=== PATIENT | male | born 1945 | race Caucasian/White ===

== ENCOUNTER 2020-02-19 12:12 | Emergency (ER) | payer MEDICARE ==
[~2020-02-19] VITALS: Ht 188 cm; Wt 127.0 kg
--- OUTSIDE RECORDS SUMMARY | 2020-02-19 12:14 | XMS REPORT | Summary of Care ---
Author Author [facility] Address Unknown Phone Unavailable Encounter [facility](FIN) [id number] Date(s): 05/14/16 - 06/12/16 [facility] Discharge Disposition: Home or Self Care Attending Physician: Teddy Strickland MD Vital Signs No data available for this section Problem List No data available for this section Allergies, Adverse Reactions, Alerts No data available for this section Medications No data available for this section Results No data available for this section Immunizations No data available for this section Procedures No data available for this section Social History No data available for this section Assessment and Plan No data available for this section
--- OUTSIDE RECORDS SUMMARY | 2020-02-19 12:14 | XMS REPORT | Continuity of Care Document ---
Author Author TEDDY [facility] [address] Address Unknown Phone Unavailable Care Team Providers Care Traveling Nurse Name Role Phone [email or web address] Unavailable Un available Problems Problem Status Onset Date Classification Date Reported Comments Source CERVICAL SPINE DDD Active [facility] Medications No Data Provided for This Section Allergies, Adverse Reactions, Alerts No Known Medication Allergies Immunizations No Data Provided for This Section Results No Data Provided for This Section Pathology Reports No Data Provided for This Section Diagnostic Reports No Data Provided for This Section Consultation Notes No Data Provided for This Section Discharge Summaries No Data Provided for This Section History and Physicals No Data Provided for This Section Vital Signs No Data Provided for This Section Encounters Location Location Details Encounter Type Encounter Number Reason For Visit Attending Provider ADM Date DC Date Status Source [facility] [id number] Teddy Strickland 04/13/2016 05/13/2016 [facility] [id number] Teddy Strickland 05/14/2016 06/13/2016 [facility] Procedures No Data Provided for This Section Assessment and Plan No Data Provided for This Section Plan of Care No Data Provided for This Section Social History Social History Date Source No data available for this section 06/13/2016 [facility] Family History No Data Provided for This Section Advance Directives No Data Provided for This Section Functional Status No Data Provided for This Section
[2020-02-19] MEDS ORDERED: AUGMENTIN 875-1 EACH PO (13:51)
[2020-02-19] MEDS ORDERED: KETOROLAC TROMETHAMINE 60 MG/2 ML VIAL ONE (14:25)
[2020-02-19] MEDS ORDERED: HYDROCODONE/APAP 10MG-325MG TAB PO SCH (14:25)
[2020-02-19] MEDS ORDERED: KETOROLAC TROMETHAMINE 60 MG/2 ML VIAL IM SCH (14:25)
--- NOTE | 2020-02-19 15:36 | Diagnostic Imaging Report ---
TECHNIQUE: Magnetic resonance imaging of the LEFT HIP was performed WITHOUT injected contrast. Dose modulation, iterative reconstruction, and/or weight based adjustment of the mA/kV was utilized to reduce the radiation dose to as low as reasonably achievable. HISTORY: Left hip pain COMPARISON: None available. FINDINGS: No fracture. No lytic or blastic lesion. 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 Muscle bulk is intact. No atrophy. No visualized mass effect on the sciatic nerve. No fluid collections or soft tissue masses. Colonic diverticulosis without inflammatory change. Scattered vascular calcifications. IMPRESSION: No displaced fracture. 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 Signed by: Dr. James Garza M.D. on 02/19/2020 3:32 PM
--- NOTE | 2020-02-19 15:52 | Diagnostic Imaging Report ---
History: Low back and left hip pain Comparison studies: None Technique: Axial images were obtained from T11 inferior endplate through the sacrum. Coronal and sagittal images reconstructed from the axial data. Intravenous contrast: None Dose modulation, iterative reconstruction, and/or weight based adjustment of the mA/kV was utilized to reduce the radiation dose to as low as reasonably achievable. Findings: Number of non-rib bearing vertebral bodies: 5 Alignment: Grade 1 degenerative anterolisthesis of L4 over L5 (1 cm). No scoliosis. Soft tissues: No paraspinal abnormalities. Atherosclerotic calcifications of the abdominal aorta] Paraspinal muscles: Mild fatty infiltration secondary to atrophy Vertebrae: No fractures, infection or neoplasm. Degenerative changes: L1-L2: Disc degeneration with decreased intervertebral space. Diffuse disc bulge results in mild canal stenosis and mild bilateral foraminal narrowing L2-L3: Disc degeneration with decreased intervertebral space. Diffuse disc bulge and mild facet hypertrophy results in mild canal stenosis and mild bilateral foraminal narrowing L3-L4: Disc degeneration with decreased intervertebral space. Diffuse disc bulge and mild facet hypertrophy results in mild canal stenosis, mild right and moderate left foraminal narrowing L4-L5: Disc degeneration with decreased intervertebral space and vacuum disc phenomenon. Uncoverage of the superior disc material, severe facet hypertrophy and grade 1 anterolisthesis results in severe canal stenosis, severe right and moderate left foraminal narrowing L5-S1: Disc degeneration with decreased intervertebral space and vacuum disc phenomenon. Diffuse disc bulge, severe right and moderate left facet hypertrophy results in mild canal stenosis, mild right and moderate left foraminal narrowing Sacroiliac joints: Mild degenerative changes with sclerotic changes and anteriorly projecting osteophytes IMPRESSION: 1. Severe degenerative canal stenosis, severe right and moderate left degenerative foraminal narrowing at L4-L5. Grade 1 degenerative anterolistheses at this level contributes to canal and foraminal stenosis. 2. Moderate degenerative left foraminal narrowing at L3-L4 and L5-S1. 3. Moderate to severe facet hypertrophy at the lower lumbar spine. Diffuse disc degeneration most significant at L4-L5 and L5-S1. Signed by: DR Ish Darnell M.D. on 02/19/2020 3:48 PM
[2020-02-19] MEDS ORDERED: ULTRAM50 MG PO (16:37)
--- NOTE | 2020-02-19 16:46 | Emergency Department Note ---
History of Present Illnes History of Present Illness Chief Complaint: General Medicine Complaints History of Present Illness This is a 74 year old male . Chief Complaint Comment PATIENT IN FROM HOME WITH COMPLAINTS OF SCIATIC NERVE PAIN X 3 WEEKS; STATES WAS SEEN BY PCP AND PUT ON GABAPENTIN, BUT IS STILL HAVING PAIN. RATES PAIN 5/10. PATIENT AMBULATORY WITHOUT ASSISTANCE, APPEARS IN NO DISTRESS, PATIENT HAS AN APPOINTMENT WITH DR BROWN ON 02/29/2020 BUT STATES HE CANNOT MAKE IT THAT LONG. Historian: Patient Arrival Mode: Car Past Medical/Family History Physician Review I have reviewed the patient's past medical and family history. Any updates have been documented here. Past Medical History Recent Fever: No Clinical Suspicion of Infectio: No New/Unexplained Change in Ment: No Past Medical History: Hypertension, Diabetes, CAD, Cancer, GERD, Hyperlipedemia Other Medical History: PROSTATE CANCER Past Surgical History: CABG Other Surgery: PROSTATE PILONIDAL CYST BILATERAL SHOULDER SURGERY Social History Smoking Cessation: Never Smoker Counseling Performed: No Alcohol Use: None Any Illegal Drug Use: No TB Exposure/Symptoms: No Physically hurt or threatened: No Family History Family history of heart diseas: No Other Last Tetanus: UNKNOWN Any Pre-Existing Lines (PICC,: No Is patient up to date on immun: Yes Last Flu: UTD Last Pneumovax: NA Review of Systems Review of Systems Review of other systems All other systems reviewed and negative. Physical Exam Related Data Allergies: Coded Allergies: No Known Allergies (Unverified , 02/19/20) Triage Vital Signs Vital Signs Date Time Temp Pulse Resp B/P (MAP) Pulse Ox O2 Delivery O2 Flow Rate FiO2 02/19/20 12:25 97.5 74 18 145/79 97 Physical Exam CONSTITUTIONAL HENT EYES NECK PULMONARY CARDIOVASCULAR GASTROINTESTINAL GENITOURINARY SKIN MUSCULOSKELETAL NEUROLOGICAL PSYCHOLOGICAL Critical Care Time Subsequent provider I assumed direction of critical care for this patient from another provider of my specialty. Assessment & Plan Assessment & Plan Final Impression: (1) OSTEOARTHRITIS OF HIP, UNSPECIFIED Assessment & Plan Lumbar CT, Hip CT Pain control Last Vital Signs Date Time Temp Pulse Resp B/P (MAP) Pulse Ox O2 Delivery O2 Flow Rate FiO2 02/19/20 13:32 68 18 156/105 99 02/19/20 12:25 97.5 Home Meds Active Scripts Amoxicillin/Potassium Clav (AUGMENTIN 875-125 TABLET) 1 Each Tablet, 875 MG PO DAILY, #10 TAB Prov:SANDHIR, AMBICA, DO 02/19/20 Medications in the ED Ketorolac Tromethamine 60 mg ONCE IM Last administered on 02/19/20at 14:23; Admin Dose 60 MG; Start 02/19/20 at 14:25; Stop 02/19/20 at 18:00 Acetaminophen/ Hydrocodone Bitart 1 ea ONCE PO ; Start 02/19/20 at 14:25; Stop 02/19/20 at 18:00 Ketorolac Tromethamine 60 mg STK-MED ONCE .ROUTE ; Start 02/19/20 at 14:25; Stop 02/19/20 at 14:19; Status DC SHAY ELY DO Feb 19, 2020 16:46
[2020-02-19 16:47] VITALS: BP 147/85
== END 2020-02-19 16:50 | disposition home or self-care (01) ==
LOC: ER 12:12
DX: M25.552 Pain in left hip (principal); M16.12 Unilateral primary osteoarthritis, left hip; I10 Essential (primary) hypertension; E11.9 Type 2 diabetes mellitus without complications; I25.10 Atherosclerotic heart disease of native coronary artery without angina pectoris; E78.5 Hyperlipidemia, unspecified; K21.9 Gastro-esophageal reflux disease without esophagitis; Z85.46 Personal history of malignant neoplasm of prostate; Z95.1 Presence of aortocoronary bypass graft
CPT/HCPCS: 72131; 73700; 99284; J1885